=== PATIENT | female | born 1975 | race Caucasian/White ===

== ENCOUNTER 2022-01-11 04:11 | Day surgery (SDC) | payer OTHER ==
[2022-01-10 11:11] VITALS: BMI 31.2
[~2022-01-11 04:11] MED LIST: LIDOCAINE HCL 1%, 10 MG/ML (20ML VIAL) INF ONE
[2022-01-11] MEDS ORDERED: LIDOCAINE HCL/PF 2% SDV 5ML VIAL ONE (10:36)
[2022-01-11] MEDS ORDERED: PROPOFOL 20 ML ONE (10:36)
[2022-01-11] MEDS ORDERED: MIDAZOLAM HCL 2 MG/2 ML SINGLE DOSE VIAL ONE (10:36)
[2022-01-11] MEDS ORDERED: DEXAMETHASONE SOD PHOSPHATE 4 MG/1 ML VIAL ONE (10:37)
[2022-01-11] MEDS ORDERED: ONDANSETRON 4 MG/2 ML VIAL ONE (10:37)
[2022-01-11] MEDS ORDERED: ONDANSETRON 4 MG/2 ML VIAL IVPUSH PRN (10:42)
[2022-01-11] MEDS ORDERED: oxyCODONE HCL 5 MG TABLET PO PRN (10:42)
[2022-01-11] MEDS ORDERED: IBUPROFEN 800 MG/8 ML IJ IVPB PRN (10:42)
[2022-01-11] MEDS ORDERED: LACTATED RINGERS SOLUTION 1,000 ML IV SCH (10:45)
[2022-01-11] MEDS ORDERED: ceFAZolin SODIUM 1 GM VIAL ONE (11:15)
[2022-01-11] MEDS ORDERED: ceFAZolin SODIUM 1 GM VIAL IVPB ONE (11:16)
[2022-01-11] MEDS ORDERED: LIDOCAINE HCL 1%, 10 MG/ML (20ML VIAL) INF ONE (11:18)
[2022-01-11 14:13] VITALS: RESP 20
[2022-01-11 16:42] VITALS: BP 138/80; PULSE 70; TEMP 98
== END 2022-01-11 14:50 | disposition home or self-care (01) ==
LOC: JASU-SURG 04:11
PROVIDERS: ATTEND Surgery
PROC: 0HBT0ZX Excision of Right Breast, Open Approach, Diagnostic (ICD-10-PCS; principal; 2022-01-11 10:00)
DX: D05.11 Intraductal carcinoma in situ of right breast (principal); N60.31 Fibrosclerosis of right breast; N60.11 Diffuse cystic mastopathy of right breast; N64.89 Other specified disorders of breast
CPT/HCPCS: 19281; 76098-TC-FY; 81025; 88307-TC; 88341-TC; 88342-TC; 94760